=== PATIENT | female | born 1975 | race Hispanic/Latino ===

== ENCOUNTER 2017-08-04 23:52 | Emergency (ER) | payer BC ==
[~2017-08-04 23:52] MED LIST: Iopamidol 370 76% 100 ML VIAL ONE
[2017-08-05] MEDS ORDERED: Sodium Chloride 0.9% 1,000 ML ONE (00:34)
[2017-08-05] MEDS ORDERED: Metoclopramide HCl 10 MG/2 ML VIAL ONE (00:35)
[2017-08-05] MEDS ORDERED: diphenhydrAMINE HCl 50 MG/ML 1 ML VIAL ONE (00:36)
[2017-08-05 00:44] LABS: Pregnancy Test - Urine (BHCG) Negative (Negative); Pregu Control Background? CLEAR/WHITE (CLR/WHITE); Pregu Control Bar Appear? YES (CONTROL BAR); Specific Gravity 1.025 (1.002-1.036)
[2017-08-05] MEDS ORDERED: Acetaminophen 500 MG TAB ONE ×2 (00:49→00:50)
[2017-08-05 01:04] LABS: Anion Gap 13 mmol/L (10-20); BUN (Urea Nitrogen) 13 mg/dL (7.0-18.7); Calc. Creatinine Clearance 0 mL/min (70-130); Calcium 9.4 mg/dL (7.8-10.44); Carbon Dioxide 24 mmol/L (22-29); Chloride 108 mmol/L (98-107); Estimated GFR-MDRD 81; Glucose 110 mg/dL (70-105); Potassium 3.9 mmol/L (3.5-5.1); Sodium 141 mmol/L (136-145)
--- NOTE | 2017-08-05 08:20 | CT ---
PRELIMINARY REPORT/[facility]/EMERGENCY AFTER HOURS PROCEDURE: FINAL REPORT EXAM: CT Angiography Head With Intravenous Contrast CLINICAL HISTORY: 42 years old, female; Pain; Headache; Patient HX: Pt. Reports one week of gradual onset right occipi sandra headache which is sharp, and radiates to both sides of the remainder of the head. Pain is consta nt, but worse with head movement, and turning the neck. Says today she had some nausea when she tilt ed her head forward. Patient reports that pain has worsened over the past couple of days. Says somet imes it wakes her from sleep, and it feels worse when she puts pressure on it when lying down. It is not the worst headache of her life. ; Additional info: She does report that her mother had an intracranial abnormality causing headaches and finally syncope requiring surgical treatment, but cannot recall exactly what the diagnosis was (aneurysm? ). TECHNIQUE: Axial computed tomographic angiography images of the head with intravenous contrast using CT angiogr aphy protocol. All CT scans at this facility use one or more dose reduction techniques, viz.: automa baldev exposure control; ma/kV adjustment per patient size (including targeted exams where dose is matc hed to indication; i.e. head); or iterative reconstruction technique. Coronal and sagittal reformatted images were created and reviewed. CONTRAST: 96 mL of ISOVUE 370 administered intravenously. COMPARISON: No relevant prior studies available. FINDINGS: Right internal carotid artery: No acute findings. Intracranial segment is patent with no significant stenosis. No aneurysm. Right anterior cerebral artery: Unremarkable. No occlusion or significant stenosis. No aneurysm. Right middle cerebral artery: Unremarkable. No occlusion or significant stenosis. No aneurysm. Right posterior cerebral artery: Unremarkable. No occlusion or significant stenosis. No aneurysm. Right vertebral artery: Unremarkable as visualized. Left internal carotid artery: No acute findings. Intracranial segment is patent with no significant stenosis. No aneurysm. Left anterior cerebral artery: Unremarkable. No occlusion or significant stenosis. No aneurysm. Left middle cerebral artery: Unremarkable. No occlusion or significant stenosis. No aneurysm. Left posterior cerebral artery: Unremarkable. No occlusion or significant stenosis. No aneurysm. Left vertebral artery: Unremarkable as visualized. Basilar artery: Unremarkable. No occlusion or significant stenosis. No aneurysm. IMPRESSION: Normal head CTA. EXAM: CT Angiography Neck With Intravenous Contrast CLINICAL HISTORY: 42 years old, female; Pain; Headache; Patient HX: Pt. Reports one week of gradual onset right occipi sandra headache which is sharp, and radiates to both sides of the remainder of the head. Pain is consta nt, but worse with head movement, and turning the neck. Says today she had some nausea when she tilt ed her head forward. Patient reports that pain has worsened over the past couple of days. Says somet imes it wakes her from sleep, and it feels worse when she puts pressure on it when lying down. It is not the worst headache of her life. ; Additional info: She does report that her mother had an intracranial abnormality causing headaches and finally syncope requiring surgical treatment, but cannot recall exactly what the diagnosis was (aneurysm? ). TECHNIQUE: Axial computed tomographic angiography images of the neck with intravenous contrast using CT angiogr aphy protocol. All CT scans at this facility use one or more dose reduction techniques, viz.: automa baldev exposure control; ma/kV adjustment per patient size (including targeted exams where dose is matc hed to indication; i.e. head); or iterative reconstruction technique. CONTRAST: 96 mL of ISOVUE 370 administered intravenously. COMPARISON: No relevant prior studies available. FINDINGS: VASCULATURE: Right common carotid artery: Unremarkable. No significant stenosis. No dissection or occlusion. Right internal carotid artery: Unremarkable. Extracranial segment is patent with no significant sten osis. No dissection or occlusion. Right external carotid artery: Unremarkable. No occlusion. Right vertebral artery: Unremarkable. No significant stenosis. No dissection or occlusion. Left common carotid artery: Unremarkable. No significant stenosis. No dissection or occlusion. Left internal carotid artery: Unremarkable. Extracranial segment is patent with no significant steno sis. No dissection or occlusion. Left external carotid artery: Unremarkable. No occlusion. Left vertebral artery: Unremarkable. No significant stenosis. No dissection or occlusion. NECK: Bones/joints: No acute fracture. No dislocation. Soft tissues: Unremarkable as visualized. No mass. CAROTID STENOSIS REFERENCE USING NASCET CRITERIA: % ICA stenosis = (1 - narrowest ICA diameter/diameter of distal cervical ICA) x 100. Mild - <50% stenosis. Moderate - 50-69% stenosis. Severe - 70-94% stenosis. Near occlusion - 95-99% stenosis. Occluded - 100% stenosis. IMPRESSION: Normal neck CTA. EXAM: CT Head Without Intravenous Contrast EXAM DATE/TIME: Exam ordered 08/05/2017 1:26 AM CLINICAL HISTORY: 42 years old, female; Pain; Headache; Patient HX: Pt. Reports one week of gradual onset right occipi sandra headache which is sharp, and radiates to both sides of the remainder of the head. Pain is consta nt, but worse with head movement, and turning the neck. Says today she had some nausea when she tilt ed her head forward. Patient reports that pain has worsened over the past couple of days. Says somet imes it wakes her from sleep, and it feels worse when she puts pressure on it when lying down. It is not the worst headache of her life. ; Additional info: She does report that her mother had an intracranial abnormality causing headaches and finally syncope requiring surgical treatment, but cannot recall exactly what the diagnosis was (aneurysm? ). TECHNIQUE: Axial computed tomography images of the head/brain without intravenous contrast. COMPARISON: No relevant prior studies available. FINDINGS: Brain: Unremarkable. No hemorrhage. No significant white matter disease. No edema. Ventricles: Unremarkable. No ventriculomegaly. Bones/joints: Unremarkable. No acute fracture. Soft tissues: Unremarkable. Sinuses: Unremarkable as visualized. No acute sinusitis. Mastoid air cells: Unremarkable as visualized. No mastoid effusion. IMPRESSION: Normal head/brain CT. Thank you for allowing us to participate in the care of your patient. Dictated and Authenticated by: Donte Alcocer MD 08/05/2017 2:28 AM Central Time ([place] \T\ [facility]) FINAL REPORT CONTRAST ENHANCED CTA CAROTIDS AND BRAIN: HISTORY: Headache. FINDINGS: Contrast-enhanced CTA of the carotid arteries performed as well as intracranial CTA. Two-D and 3D r econstructed images performed on an independent 3D work station. Noncontrast-enhanced CT of the brain is grossly unremarkable. CTA neck and brain demonstrates normal flow seen in the right and left common, internal, and externa l carotid arteries. Vertebrobasilar arteries are patent. No significant evidence of stenosis seen. CTA intracranially demonstrates the INDIO, MCA, and [employer] vessels to be patent. No significant evidence of aneurysm seen. IMPRESSION: Normal CTA neck and brain. POS: SERA
== END 2017-08-05 02:45 | disposition home or self-care (01) ==
LOC: NAV ERS 23:52
DX: G44.209 Tension-type headache, unspecified, not intractable (principal)
CPT/HCPCS: 70496; 70498; 80048; 81025; 96361; 96374; 96375; J1200; J2765; J7050